=== PATIENT | male | born 1975 | race African-American/Black ===

== ENCOUNTER 2017-07-28 23:37 | Emergency (ER) | payer MEDICARE, MEDICAID ==
[~2017-07-28] VITALS: Ht 170.2 cm; Wt 138.0 kg
[2017-07-29] MEDS ORDERED: SODIUM CHLORIDE 0.9% 1,000 ML IV ONE (00:21)
[2017-07-29] MEDS ORDERED: TETANUS, DIPHTHERIA, PERTUSSIS VAC/PF 0.5ML (>7YR OLD) IM ONE (00:30)
[2017-07-29] MEDS ORDERED: KETOROLAC 30MG/ML VIAL IV ONE (00:30)
[2017-07-29] MEDS ORDERED: LIDOCAINE HCL 1%/EPI 1:200,000 30 ML VIAL MC ONE (00:30)
[2017-07-29] MEDS ORDERED: BACITRACIN ZINC OINT UDPKT TOP ONE (00:30)
[2017-07-29 01:59] LABS: BASOPHILS % 0.5 % (0.0-2.0); EOSINOPHILS % 1.5 % (0.0-5.0); HEMATOCRIT. 37.2 % (42.0-52.0); HEMOGLOBIN. 12.6 g/dL (14.0-18.0); LYMPHOCYTES % 22.8 % (20.0-50.0); MEAN CORPUSCULAR VOLUME 88.8 fL (80.0-94.0); MEAN PLATELET VOLUME 9.2 fl (7.4-10.4); MONOCYTES % 9.9 % (2.0-8.0); NEUTROPHILS % 65.3 % (40.0-76.0); PLATELET 196 x1000/uL (130-400); RED BLOOD CELL COUNT 4.19 mill/uL (4.7-6.1); RED CELL DISTRIBUTION WIDTH 17.6 % (11.6-14.6)
[2017-07-29 02:00] LABS: CHLORIDE 100 mEq/L (98-107)
[2017-07-29 02:04] LABS: ETHANOL BLOOD 91 mg/dL
[2017-07-29] MEDS ORDERED: POTASSIUM CHLORIDE 20MEQ TABLET SR PO ONE (02:45)
[2017-07-29 14:28] VITALS: BP 164/96
== END 2017-07-29 14:30 | disposition home or self-care (01) ==
LOC: ER 23:37
DX: S01.01XA Laceration without foreign body of scalp, initial encounter (principal); F10.129 Alcohol abuse with intoxication, unspecified; F17.200 Nicotine dependence, unspecified, uncomplicated; F20.9 Schizophrenia, unspecified; I10 Essential (primary) hypertension; N28.9 Disorder of kidney and ureter, unspecified; R00.0 Tachycardia, unspecified; Y90.4 Blood alcohol level of 80-99 mg/100 ml; Z87.828 Personal history of other (healed) physical injury and trauma; Z98.890 Other specified postprocedural states; Z88.0 Allergy status to penicillin; Y00.XXXA Assault by blunt object, initial encounter; Y93.89 Activity, other specified; Y92.488 Other paved roadways as the place of occurrence of the external cause
CPT/HCPCS: 12002; 36415; 70450; 80053; 85025; 90471; 90715; 93005; 96361; 96374; 99285; G0482; J1885; J7030